=== PATIENT | female | born 1985 | race Caucasian/White ===

== ENCOUNTER → 2021-03-31 | Outpatient (CLI) | payer OTHER | LOC: LAB 10:13 | PROVIDERS: ATTEND Surgery | DX: Z01.812 Encounter for preprocedural laboratory examination (principal); R59.1 Generalized enlarged lymph nodes; Z20.822 Contact with and (suspected) exposure to COVID-19 | CPT/HCPCS: U0003; U0005 ==

== ENCOUNTER 2021-04-03 06:30 | Day surgery (SDC) | payer OTHER ==
[~2021-04-03] VITALS: Ht 170.2 cm; Wt 63.0 kg
[~2021-04-03 06:30] MED LIST: ACETAMINOPHEN 500 MG TABLET PO PRN; HYDROmorphone 2 MG/ML VIAL IVP PRN; IV RINGERS,LACTATED 1000ML 1,000 ML IV SCH; MORPHINE SULFATE 2 MG/ML VIAL. IVP PRN; PROCHLORPERAZINE 10 MG/2 ML VIAL. IVP PRN; ceFAZolin SODIUM IV Push 1 GM VIAL. IVP PRN; fentaNYL PF VIAL 100 MCG/2 ML VIAL IVP PRN
[2021-04-03] MEDS ORDERED: DEXAMETHASONE SOD PHOS 4 MG/ML VIAL ONE (06:35)
[2021-04-03] MEDS ORDERED: ONDANSETRON PF 4 MG/2 ML VIAL. ONE (06:35)
[2021-04-03] MEDS ORDERED: PROPOFOL 10 MG/ML (20ML) VIAL. IV ONE (06:35)
[2021-04-03] MEDS ORDERED: LIDOCAINE 2% PF 5 ML VIAL. ONE (06:35)
[2021-04-03] MEDS ORDERED: BUPIVACAINE-EPI 0.25% 30 ML VIAL KIT. ONE (07:05)
[2021-04-03] MEDS ORDERED: fentaNYL PF VIAL 100 MCG/2 ML VIAL ONE (07:28)
[2021-04-03] MEDS ORDERED: SEVOFLURANE 16 TO 30 MINUTES. IH ONE (07:53)
--- NOTE | 2021-04-03 08:00 | PDOC4 ---
Operative Note Operative Note Date: April 03, 2021 at 758 Preoperative diagnosis: Right groin lymphadenopathy Postoperative diagnosis: Same Procedure: Lymph node biopsy right groin Surgeon: Lloyd Specimen: Lymph node Dictation: Patient is a 35-year-old female has had swelling in her right groin for several months ultrasound showed lymph nodes. Procedure of excision excisional biopsy was explained to the patient detail risk benefits were also discussed including bleeding infection alternatives to this procedure also discussed with the patient who seemed to understand and gave both verbal and written consent to have the procedure performed. Patient was taken to the operating room placed in supine position general anesthesia was initiated once patient was sleeping intubated her right groin was prepped and draped usual sterile fashion using ChloraPrep. Area over the right groin where the mass was palpable was injected with quarter percent Marcaine with epinephrine incision was made with 15 blade scalpel is carried down through subcutaneous tissues using electrocautery right hemostasis the large lymph node was visualized and sharply excised electrocautery and sent for pathology. The wound was then closed in 2 layers the deep layer running 3-0 Vicryl and the skin was reapproximated for subcuticular Monocryl Mastisol Steri-Strips and island dressings were applied. Patient was awakened and extubated in the operating room taken to recovery in stable condition all sponge instrument needle counts listed as correct estimated blood loss less than 5 mL ROSY BILL MD April 03, 2021 08:00
--- NOTE | 2021-04-03 08:01 | DISCH ---
DISCHARGE INSTRUCTIONS Condition on Discharge Condition on Discharge: Stable Activity After Discharge Activity Instructions for Disc: Activity as tolerated Diet after Discharge Diet after Discharge: Regular Wound Incision Care Other wound/incision instructi: Cherie shower in 24 hours Contacting the DRJeff after DC Call your doctor for: If your condition worsens Follow-Up Follow up with: Dr. Bill in 2 weeks ROSY BILL MD April 03, 2021 08:01
[2021-04-03] MEDS ORDERED: HYDROcodone/APAP 5/325MG 1 TAB TABLET PO ONE (08:15)
[2021-04-03 08:46] VITALS: BP 97/51
--- NOTE | 2021-04-07 14:07 | PATHOLOGY ---
[facility] Accession Number: [id number] . 01 Material submitted: . groin - RIGHT GROIN LYMPH NODE. Modifiers: right . 01 Clinical history: . LYMPHADENOPATHY LYMPH NODE BIOPSY . 02 Diagnosis: Lymph node and perinodal fibroadipose tissue, right groin lymph node excisional biopsy: - Reactive lymphoid hyperplasia, mixed pattern. LBQ 04/07/2021 1009 Local . 02 Comment: Sections of the right groin lymph node excisional biopsy reveal lymph node and attached perinodal fibroadipose tissue. There are scattered lymphoid follicles within the cortex which possess reactive germinal centers containing tingible body macrophages. The germinal centers are surrounded by a mantle of small lymphocytes. There are focal areas of paracortical expansion comprised predominantly of small lymphocytes with scattered admixed histiocytes. There is focal mild sinus histiocytosis. The central core of the lymph node is fibrotic. . A portion of the lymph node submitted for flow cytometric analysis has a viability of 74.3%. T-cells comprise 66% of lymphoid cells and show a CD4/CD8 ratio of 5.1. NK-cells comprise 1% of lymphoid cells. Mature B-cells comprise 28% of lymphoid cells are polyclonal with a kappa:lambda ratio of 1.3. There is no flow immunophenotypic evidence of a B-cell or T-cell lymphoproliferative disorder. . The morphologic and immunophenotypic findings are supportive of the diagnosis of reactive lymphoid hyperplasia, mixed pattern. (JPM/db; 04/07/2021) . 02 Electronically signed: . Raulito Miller MD, Pathologist NPI- [id number] . 01 Gross description: . The specimen is received fresh and is designated "right groin lymph node". This consists of a segment of yellow fatty tissue measuring up to 2.0 x 2.0 x 0.8 cm in greatest dimension. Sectioning reveals an apparent slightly lobulated pink-christianson lymph node measuring up to 1.7 cm. Two touch preps are prepared and submitted for H and E stains. A retail sales representative portion of the node is submitted in RPMI for flow cytometric analysis. The remainder of the lymph node is submitted for microscopy as A1. (JPM:bart; 04/03/2021) /QMS 04/03/2021 1512 Local . 02 Pathologist provided ICD-10: R59.9 . 02 CPT . 060930 Specimen Comment: A courtesy copy of this report has been sent to [phone], [phone] Specimen Comment: [id number] Specimen Comment: Report sent to / DR STEWART Performed at: 01 [facility] [address] [facility] [address], [place] [id number] MD Osvaldo Pearce MD Phone: [phone] Performed at: 02 [facility] [address], [place] [id number] MD Raulito Miller MD Phone: [phone]
== END 2021-04-03 09:09 | disposition home or self-care (01) ==
LOC: SURG 06:30 → EDUNIT# 08:00 → SURG 09:09
PROVIDERS: ATTEND Surgery
DX: R59.9 Enlarged lymph nodes, unspecified (principal); F41.9 Anxiety disorder, unspecified; Z79.899 Other long term (current) drug therapy; Z98.890 Other specified postprocedural states; Z72.89 Other problems related to lifestyle; Z88.8 Allergy status to other drugs, medicaments and biological substances
CPT/HCPCS: 38500; 81025; 88184; 88185; A4213; A4364; A4930; A6219; J0690; J1100; J2405; J2704; 88307; A4452; J3010